=== PATIENT | female | born 1955 | race Caucasian/White ===

== ENCOUNTER → 2018-06-14 | Outpatient (CLI) | payer OTHER ==
--- NOTE | 2018-06-15 03:09 | REP ---
Clinical: Pain with recent trauma . Technique: Internal rotation, external rotation, and Y view right shoulder . Findings: No acute fracture or dislocation. The acromioclavicular and glenohumeral joints are intact. No periarticular calcifications or degenerative changes are appreciated. Sub acromial space is normal. Surrounding soft tissues are unremarkable. Impression: Normal age-appropriate right shoulder radiographs.
--- NOTE | 2018-06-15 03:09 | REP ---
Clinical: Pain with recent trauma. Technique: AP and axial views of the right clavicle. Findings: Clavicle appears intact. Sternoclavicular and acromioclavicular joints appear stable. No obvious acute fracture or dislocation. Surrounding soft tissues are unremarkable. Impression: Normal right clavicle radiographs.
== END ==
LOC: M CLY 10:49
PROVIDERS: ATTEND Physician Assistant
DX: S49.91XA Unspecified injury of right shoulder and upper arm, initial encounter (principal); X58.XXXA Exposure to other specified factors, initial encounter; Y92.9 Unspecified place or not applicable; Y93.9 Activity, unspecified; Y99.9 Unspecified external cause status

== ENCOUNTER → 2018-06-14 | Outpatient (REF) | payer OTHER ==
[2018-06-14 16:56] LABS: BASO # 0.1 10^3/uL (0.0-0.2); BASO % 0.9 % (0.0-1.0); EOS # 0.2 10^3/uL (0.0-0.50); EOS % 3.6 % (0.0-3.0); HEMATOCRIT 42.9 % (36.0-47.0); HEMOGLOBIN 13.8 g/dl (12.0-15.5); LYMPH # 1.8 10^3/uL (1.5-4.5); LYMPH % 30.2 % (24.0-44.0); MEAN CORPUSCULAR HEMOGLOBIN 29.2 pg (27.0-33.0); MEAN CORPUSCULAR HGB CONC 32.2 g/dl (32.0-36.5); MEAN CORPUSCULAR VOLUME 90.9 fl (80.0-96.0); MONO # 0.4 10^3/uL (0.0-0.8); MONO % 6.9 % (0.0-5.0); NEUTROPHILS # 3.4 10^3/uL (1.8-7.7); NEUTROPHILS % 58.2 % (36.0-66.0); PLATELET COUNT, AUTOMATED 248 10^3/uL (150-450); RED BLOOD COUNT 4.72 10^6/uL (4.00-5.40); WHITE BLOOD COUNT 5.8 10^3/uL (4.0-10.0)
[2018-06-14 17:12] LABS: ALBUMIN 4.5 GM/DL (3.2-5.2); ALT/SGPT 40 U/L (12-78); BILIRUBIN,TOTAL 0.8 MG/DL (0.2-1.0); BLOOD UREA NITROGEN 11 MG/DL (7-18); CALCIUM LEVEL 8.8 MG/DL (8.8-10.2); CARBON DIOXIDE LEVEL 28 MEQ/L (21-32); CHLORIDE LEVEL 105 MEQ/L (98-107); CHOLESTEROL LEVEL 287 MG/DL (<200); CHOLESTEROL RISK RATIO 3.457 (<5); CREATININE FOR GFR 0.72 MG/DL (0.55-1.30); FREE T4 0.95 NG/DL (0.76-1.46); GLOMERULAR FILTRATION RATE > 60.0 (>45); GLUCOSE, FASTING 102 MG/DL (70-100); HDL CHOLESTEROL 83 MG/DL (>40); LDL CHOLESTEROL 184 MG/DL (<100); NON-HDL-C 204 MG/DL; SODIUM LEVEL 140 MEQ/L (136-145); THYROID STIMULATING HORMONE 0.981 uIU/ML (0.358-3.740); TOTAL PROTEIN 7.3 GM/DL (6.4-8.2); TRIGLYCERIDES LEVEL 98 MG/DL (<150)
== END ==
LOC: M SFHCCAPE 10:02
PROVIDERS: ATTEND Physician Assistant
DX: Z13.6 Encounter for screening for cardiovascular disorders (principal)

== ENCOUNTER → 2018-07-05 | Outpatient (REF) | payer OTHER ==
[2018-07-09 00:07] LABS: HPV HYBRID CAPTURE II Negative (Negative)
== END ==
LOC: M SFHCCAPE 10:57
PROVIDERS: ATTEND Physician Assistant
DX: Z01.419 Encounter for gynecological examination (general) (routine) without abnormal findings (principal)

== ENCOUNTER → 2019-02-10 | Outpatient (CLI) | payer OTHER ==
--- NOTE | 2019-02-10 15:02 | REP ---
Clinical: Clavicle pain. Technique: AP and axial views of the clavicle. Findings: Sternoclavicular and acromioclavicular joints are intact and relatively normal. No fracture. Impression: Age-appropriate left clavicle. Electronically Signed by Lobito Yoo MD 02/10/2019 02:54 P
--- NOTE | 2019-02-10 15:04 | REP ---
Clinical: Left shoulder pain. Technique: Internal rotation, external rotation, and Y view of the left shoulder. Findings: Mild age-related degenerative changes include cortical irregularity at the acromioclavicular joint and subtle blunting/sclerosis to the glenoid rim. Subacromial space is normal. There is no evidence for fracture or dislocation. Impression: Age-related osteopenia and mild degenerative changes. Electronically Signed by Lobito Yoo MD 02/10/2019 02:56 P
--- NOTE | 2019-02-10 15:06 | REP ---
Clinical: Left shoulder pain. Technique: Three total views of the bilateral sternoclavicular joints. Findings: Osteopenia and age-related changes are appreciated. Sternoclavicular joints are relatively symmetric and within normal limits. No acute fracture or subluxation. Impression: Symmetric age-related changes to the sternoclavicular joints. Electronically Signed by Lobito Yoo MD 02/10/2019 02:58 P
== END ==
LOC: M CLY 13:54
PROVIDERS: ATTEND Physician Assistant
DX: M25.512 Pain in left shoulder (principal); M81.0 Age-related osteoporosis without current pathological fracture